=== PATIENT | female | born 1970 | race Caucasian/White ===

== ENCOUNTER 2021-08-04 16:39 | Emergency (ER) | payer BC, SELFPAY ==
--- NOTE | ~2021-08-04 | XR_ITS ---
EXAMINATION: XR wrist RT min 3V EXAM DATE: 08/04/2021 17:20 INDICATION: rt wrist pain s/p falling off horse TECHNIQUE: Right wrist frontal, frontal with ulnar deviation, oblique and lateral projections obtain ed and reviewed. There is no prior study for comparison. FINDINGS: Acute closed posttraumatic right radial distal metaphyseal fracture. Uncertain whether or n ot fracture line extends into the radiocarpal joint. This finding has been indicated, marked on the e xamination for review, clinical correlation. Carpal bones are unremarkable. IMPRESSION: Acute nondisplaced right radial distal metaphyseal fracture. Reviewed, dictated and finalized at location A. 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
[2021-08-04 16:51] VITALS: BP 123/94; PULSE 73; RESP 16; TEMP 36.5; O2SAT 99
--- NOTE | 2021-08-04 16:56 | ED.UPPEXIN ---
HPI - Extremity Injury (Upper) General Chief Complaint: Extremity Injury, Upper Stated Complaint: right wrist pain Time Seen by Provider: 08/04/21 16:56 Source: patient Mode of arrival: ambulatory Limitations: no limitations History of Present Illness HPI narrative: Ying Leger is a 51 yo female with PMH of GERD, hypothyroid, [facility] from [facility] and states fell on right wrist. Occurred POA, mild swelling, has taken 60 mg ibuprofen Related Data Home Medications Medication Instructions Recorded Confirmed estradiol 0.5 mg PO DAILY 08/04/21 08/04/21 omeprazole 10 mg PO DAILY 08/04/21 08/04/21 thyroid (pork) [Printer Thyroid] 15 mg PO DAILY 08/04/21 08/04/21 Allergies Allergy/AdvReac Type Severity Reaction Status Date / Time No Known Allergies Allergy Verified 08/04/21 17:05 Review of Systems Review of Systems: CONSTITUTIONAL: Denies fever, chills, sweats. EYES: Denies visual changes, redness, discharge. ENT: Denies rhinorrhea, congestion, sore throat, otalgia. CARDIOVASCULAR: Denies chest pain, palpitations, edema. RESPIRATORY: Denies dyspnea, wheezing, cough GASTROINTESTINAL: Denies abdominal pain, nausea, vomiting, diarrhea. GENITOURINARY: Denies dysuria, hematuria, abnormal discharge SKIN: Denies rash or itching. NEUROLOGIC: Denies numbness, or focal weakness. PSYCHIATRIC: Denies anxiety or depression. Right wrist swelling and pain PMFSH Past Medical History Medical History GERD (gastroesophageal reflux disease) Hypothyroid Social History Social History (Updated 08/04/21 @ 17:08 by Tania King CNP) Smoking status: Never smoker Alcohol intake: current Comments At time of signature, I agree with nursing past medical, surgical, social and family history. There is no relevant family history pertinent to the presenting complaint. Exam Narrative: GENERAL: This is a well-nourished, well-developed patient, in mild distress. HEAD: normocephalic, atraumatic. EYES: Sclera clear/white. Vision is grossly intact. EARS: External ears normal,. Hearing grossly intact. NOSE: External nose normal without nasal discharge, nares without redness, no rhinorrhea. THROAT: Mucous membranes moist, NECK: Neck supple, CARDIOVASCULAR: Regular rate and rhythm without murmurs, gallops, or rubs. RESPIRATORY: Clear to auscultation. Breath sounds equal bilaterally. No wheezes, rales, or rhonchi. GASTROINTESTINAL: Abdomen soft, SKIN: warm, intact with no suspicious lesions or rash, good texture and turgor. NEURO: awake, alert, and oriented to person, place and time. EXTREMITIES: Good finger opposition on the right hand able to splay fingers 2+ pulse fingers a little cool BACK: Nontender without deformity Course Course Emergency Course: Patient fell from horse and injured right wrist x-ray right wrist shows acute nondisplaced right radial distal metaphyseal fracture Place in sugar tong OCL- neurovascular intact pre and post Follow up with orthopedics on return home Vital Signs Vital signs: Vital Signs Temperature 97.7 F 08/04/21 16:51 Pulse Rate 73 08/04/21 16:51 Respiratory Rate 16 08/04/21 16:51 Blood Pressure 123/94 H 08/04/21 16:51 Pulse Oximetry 99 08/04/21 16:51 Temperature 97.7 F 08/04/21 16:51 Pulse Rate 73 08/04/21 16:51 Respiratory Rate 16 08/04/21 16:51 Blood Pressure 123/94 H 08/04/21 16:51 Pulse Oximetry 99 08/04/21 16:51 MDM - Extremity Injury (Upper) Differential Diagnosis Differential diagnosis: Likely sprain and strain of wrist, fracture of wrist, finger sprain, dislocation of finger, fracture of hand and other Critical Care Time Critical Care Time Critical Care Time: No Discharge Plan Discharge Clinical Impression: Fracture of wrist Qualifiers: Encounter type: initial encounter Fracture type: closed Laterality: right Qualified Code(s): S62.101A - Fracture of unspecifie
== END 2021-08-04 18:15 | disposition home or self-care (01) ==
PROVIDERS: Emergency Provider Nurse Practitioner
DX: S52.501A Unspecified fracture of the lower end of right radius, initial encounter for closed fracture (principal); V80.010A Animal-rider injured by fall from or being thrown from horse in noncollision accident, initial encounter; K21.9 Gastro-esophageal reflux disease without esophagitis; E03.9 Hypothyroidism, unspecified
CPT/HCPCS: 29125; 73110; 99214; A4565; G0463